=== PATIENT | female | born 2000 | race Caucasian/White ===

== ENCOUNTER 2021-03-31 18:02 | Emergency (ER) | payer MEDICAID, SELFPAY ==
--- NOTE | ~2021-03-31 | XR_ITS ---
EXAMINATION: CR RIGHT ANKLE. CR RIGHT FOOT. CLINICAL INFORMATION: Pain and swelling. COMPARISON: None TECHNIQUE: 3 views of the right foot and ankle. FINDINGS: Right foot and ankle: Lateral malleolar soft tissue swelling is seen. No acute fracture or dislocation is seen. The ankle mortise is symmetric and intact. No ankle joint effusion is seen. Bony structures in the foot within normal limits. No radiopaque foreign body. XR/XR ankle RT min 3V IMPRESSION: No acute fracture of the right ankle or right foot.
--- NOTE | ~2021-03-31 | XR_ITS ---
EXAMINATION: CR RIGHT ANKLE. CR RIGHT FOOT. CLINICAL INFORMATION: Pain and swelling. COMPARISON: None TECHNIQUE: 3 views of the right foot and ankle. FINDINGS: Right foot and ankle: Lateral malleolar soft tissue swelling is seen. No acute fracture or dislocation is seen. The ankle mortise is symmetric and intact. No ankle joint effusion is seen. Bony structures in the foot within normal limits. No radiopaque foreign body. XR/XR foot RT 2V IMPRESSION: No acute fracture of the right ankle or right foot.
[2021-03-31 18:24] VITALS: BP 110/76; PULSE 76; RESP 16; TEMP 36.3; O2SAT 98; BMI 28.3
--- NOTE | 2021-03-31 20:42 | ED.LOWEXIN ---
HPI - Extremity Injury (Lower) General Chief Complaint: Extremity Injury, Lower Stated Complaint: r ankle injury Source: patient and EMS Mode of arrival: EMS Limitations: no limitations History of Present Illness HPI Narrative: 20-year-old female presents via EMS for right ankle pain. Stated that she was walking in a store, tripped and reports 10 right ankle pain and swelling. He has not hit her head, we consciousness, and denies any other symptoms at this time. complaint: ankle injury Onset (ago): hour(s) (Within the hour of arrival) Type of Injury: inversion Place: other (Store) Severity: severe Severity scale (1-10): 10 Relieving factors: nothing Exacerbating factors: weight bearing, movement and palpation Context: walking Associated symptoms: swelling and unable to bear weight Other symptoms: none Treatments prior to arrival: cold therapy Related Data Previous Rx's Medication Instructions Recorded ibuprofen 600 mg tablet 600 mg PO Q6H PRN #60 tab 03/31/21 Allergies Allergy/AdvReac Type Severity Reaction Status Date / Time bee pollen [bee stings] Allergy Angioedema Verified 03/31/21 18:28 peanut Allergy Angioedema Verified 03/31/21 18:28 Review of Systems Review of Systems: Constitutional: No Fever, No Chills ENT/Mouth: No Ear Pain, No Hoarseness, No sore throat Eyes: No Eye Pain, No Swelling, No Redness, No Foreign Body Cardiovascular: No Chest Pain, No SOB Respiratory: No Cough, No Dyspnea Gastrointestinal: No Nausea, No Vomiting, No Diarrhea, No abdominal Pain Genitourinary: No Dysuria, No Hematuria Musculoskeletal: positive ankle pain, No Myalgias, No Joint Swelling Skin: No Skin lacerations, No rash Neuro: No Weakness, No Numbness, No Paresthesias, No Loss of Consciousness, No Dizziness, No Headache Psych: No Anxiety/Panic, No Depression Heme/Lymph: no easy bruising, no Lymphadenopathy Endocrine: No Polyuria, No Polydipsia Yes all other systems are reviewed and are negative [facility] Past Medical History Attestation statement: The following information was validated with the patient. Source: old records reviewed Social History Social History Advance Directives: No Physical Exam Vital Signs: Vital Signs: Last Vital Signs Temp 97.3 F 03/31/21 18:24 Pulse 76 03/31/21 18:24 Resp 16 03/31/21 18:24 BP 110/76 03/31/21 18:24 Pulse Ox 98 03/31/21 18:24 Body Mass Index 28.3 Appearance: Alert. Oriented X3. No acute distress. Eyes: Pupils equal, round and reactive to light. ENT: Pharynx normal. Neck: Normal inspection. Neck supple. CVS: Normal heart rate and rhythm. Pulses normal. Respiratory: No respiratory distress. Breath sounds normal. Abdomen: Soft and nontender. Skin: Skin warm and dry. Normal skin color. Normal skin turgor. Extremities: Minimal swelling noted to the right lateral malleolar process, tenderness noted to bilateral malleolar processes, decreased flexion extension internal external rotation for range of motion. Brisk capillary refill and equal pulses. Neuro: No motor deficit. No sensory deficit. Cranial nerves 2-12 intact. Course Course Course Narrative: 20-year-old female presents with right ankle pain and swelling after a twisting injury while walking in a store. Patient states tab 10/10 pain with minimal palpation and movement. I do not appreciate significant swelling or bruising. Will order x-rays. X-rays are negative for acute findings requiring emergent intervention. While there is no fracture or dislocation, no significant swelling or bruising, I will place patient in Sarthak wrap, air cast and provide crutches as patient states that she is unable to ambulate well. Will give prescription for Motrin. Patient verbalizes understanding of and agrees to plan of care discharge home MDM - Extremity Injury (Lower) Differential Diagnosis Differential diagnosis: Likely ankle sprain and strain and ankle fracture Medical Records Attestation: I reviewed the patient's medical records. Imaging Data Ankle and foot x-ray: Attestation: I personally reviewed and interpreted this imaging study as follows: Radiologist's impression: EXAMINATION: CR RIGHT ANKLE. CR RIGHT FOOT. CLINICAL INFORMATION: Pain and swelling.? COMPARISON: None? TECHNIQUE: 3 views of the right foot and ankle. FINDINGS: Right foot and ankle: Lateral malleolar soft tissue swelling is seen. No acute fracture or dislocation is seen. The ankle mortise is symmetric and intact. No ankle joint effusion is seen. Bony structures in the foot within normal limits. No radiopaque foreign body.? XR/XR foot RT 2V IMPRESSION: No acute fracture of the right ankle or right foot.? Discharge Plan Discharge Clinical Impression: Ankle sprain and strain Patient Disposition: Home, Self-Care Instructions: Ankle Sprain (ED), Ankle Stirrup Splint (ED) Additional Instructions: You were evaluated for injury sustained while walking. X-rays are negative for fracture or dislocation. Her symptoms are consistent with an ankle sprain. Please use Sarthak wrap and stirrup splint as needed for comfort. Rest, ice and elevate. Use Tylenol and Motrin as needed for pain management. Thank you for choosing this emergency department for evaluation. Please follow-up with primary care physician as needed. Return to the emergency department for any new, concerning, or worsening symptoms. Prescriptions: New ibuprofen 600 mg tablet 600 mg PO Q6H PRN (Reason: pain) Qty: 60 RF: 0 Referrals: Billy Weiss PA-C [Physician [facility]] - 2 days (right ankle sprain) Interventions: ED Discharge Assessment Last Done: 03/31/21 23:33 Discharge Date/Time: 03/31/21 23:34
[2021-03-31] MEDS: Ibuprofen 600 MG TABLET PO (22:05)
== END 2021-03-31 23:34 | disposition home or self-care (01) ==
PROVIDERS: Emergency Provider Emergency Medicine
DX: S93.401A Sprain of unspecified ligament of right ankle, initial encounter (principal); S96.911A Strain of unspecified muscle and tendon at ankle and foot level, right foot, initial encounter; X50.1XXA Overexertion from prolonged static or awkward postures, initial encounter; Y93.89 Activity, other specified; Y92.512 Supermarket, store or market as the place of occurrence of the external cause; Y99.9 Unspecified external cause status
CPT/HCPCS: 73610; 73620; 99283

== ENCOUNTER 2022-03-07 13:24 | Outpatient (REF) | payer MEDICAID, SELFPAY ==
[2022-03-07 16:03] LABS: HCG Quantitative 87366 mIU/mL
== END 2022-03-07 13:25 | disposition home or self-care (01) ==
LOC: HO.LAB 13:24
PROVIDERS: Visit Provider Advanced Practice Midwife
DX: Z32.01 Encounter for pregnancy test, result positive (principal)
CPT/HCPCS: 36415; 81025; 84702; 99202

== ENCOUNTER 2022-03-15 13:33 | Outpatient (REF) | payer MEDICAID, SELFPAY ==
--- NOTE | ~2022-03-15 | US_ITS ---
EXAMINATION: US OBSTETRICAL CLINICAL INFORMATION: History of recent miscarriage July 2021 COMPARISON: None. LMP: 01/04/2022. Gestational age by maternal dates is 10 weeks 0 days. Estimated date of delivery by maternal dates is 3323. TECHNIQUE: Routine grayscale imaging of pelvis is performed. FINDINGS: There is a single intrauterine gestational sac with visible yolk sac, embryo/fetus, and cardiac activity. There is no significant subchorionic hemorrhage or hematoma. HR: 172 beats per minute. CRL (crown rump length): 1.79 cm (8 weeks 2 days +/- 4 days). JENA (estimated date of delivery): 10/23/2022 +/- 4 days. MATERNAL ADNEXA: The right maternal ovary measures 2.7 x 1.8 x 1.9 cm. No focal lesion seen. The left maternal ovary measures 3.3 x 2.7 x 2.5 cm. There is anechoic corpus luteal cyst measuring 1.9 x 1.8 x 1.6 cm There is no significant maternal adnexal mass. No maternal pelvic ascites. US/US OB <= 14 weeks fetus IMPRESSION: 1. Single intrauterine gestation with ultrasound gestational age of 8 weeks and 2 days +/- 4 days. 2. Estimated date of delivery is 10/23/2022 +/- 4 days. 3. No maternal adnexal mass or pelvic ascites.
== END 2022-03-15 13:34 | disposition home or self-care (01) ==
LOC: HO.US 13:33
PROVIDERS: Visit Provider Advanced Practice Midwife
DX: Z34.91 Encounter for supervision of normal pregnancy, unspecified, first trimester (principal); Z3A.10 10 weeks gestation of pregnancy
CPT/HCPCS: 76801

== ENCOUNTER → 2022-05-06 13:33 | Outpatient (BNVA) | payer MEDICAID, SELFPAY | PROVIDERS: Visit Provider Advanced Practice Midwife | DX: O09.292 Supervision of pregnancy with other poor reproductive or obstetric history, second trimester (principal); Z3A.15 15 weeks gestation of pregnancy | CPT/HCPCS: 99212 ==

== ENCOUNTER 2022-05-08 12:23 | Outpatient (REF) | payer MEDICAID, SELFPAY ==
[2022-05-08 13:15] LABS: Hematocrit 35.6 % (37.0-47.0); Hemoglobin 12.5 g/dl (12.0-16.0); Mean Corpuscular HGB Conc 35.1 g/dl (31.0-35.0); Mean Corpuscular Hemoglobin 31.3 pg (27.0-33.0); Mean Platelet Volume 10.5 fL (9.4-12.3); Platelet Count 185 X10*3/uL (160-400); Red Cell Distribution Width 13.7 % (11.0-16.0); White Blood Count 7.8 X10*3/uL (4.8-10.8)
[2022-05-08 13:49] LABS: Amphetamine Screen Urine Not Detected (Not Detect); Barbiturates, Urine Not Detected (Not Detect); Benzodiazepines Screen Urine Not Detected (Not Detect); Cannabinoid Screen Urine Not Detected (Not Detect); Cocaine Screen Urine Not Detected (Not Detect); Fentanyl, urine Not Detected (Not Detect); Opiate Screen Urine Not Detected (Not Detect); Phencyclidine Screen Urine Not Detected (Not Detect)
[2022-05-08 14:04] LABS: Syphilis Screen Nonreactive (Nonreactive)
[2022-05-09 06:06] LABS: CT PCR NOT DETECTED (Not Detect.); NG PCR NOT DETECTED (Not Detect.)
[2022-05-09 07:18] LABS: HBsAGNum1 0.39 S/CO (0.00-0.99); HIV AB/AG Nonreactive (Nonreactive); HIV Num 1 0.09 S/CO (0.00-0.99); Hepatitis B Surface Antigen Negative (Negative); ~HepC Num1 0.06 S/CO (0.00-0.79); ~Hepatitis C Antibody Nonreactive (Nonreactive)
[2022-05-09 13:10] LABS: BV Int Neg Control Negative (Negative); BV Int Pos Control Positive (Positive)
[2022-05-10 08:47] LABS: Rubella IgG Antibody 0.92 Index; Varicella IgG Antibody <135.00 index
== END 2022-05-08 12:24 | disposition home or self-care (01) ==
LOC: HO.LAB 12:23
PROVIDERS: Visit Provider Advanced Practice Midwife
DX: Z34.92 Encounter for supervision of normal pregnancy, unspecified, second trimester (principal); Z3A.16 16 weeks gestation of pregnancy
CPT/HCPCS: 80307; 81003; 85027; 86762; 86780; 86787; 86803; 86850; 86900; 87086; 87340; 87389; 87480; 87491; 87510; 87591; 87660; 88142; 99212

== ENCOUNTER 2022-05-08 13:45 | Outpatient (REF) | payer MEDICAID, SELFPAY | END 2022-05-08 13:46 | disposition home or self-care (01) | LOC: HO.LNP 13:45 | PROVIDERS: Visit Provider Advanced Practice Midwife | DX: Z34.92 Encounter for supervision of normal pregnancy, unspecified, second trimester (principal) | CPT/HCPCS: 88142 ==

== ENCOUNTER → 2022-06-11 08:53 | Outpatient (BNVA) | payer MEDICAID, SELFPAY | PROVIDERS: Visit Provider Obstetrics & Gynecology | DX: Z34.82 Encounter for supervision of other normal pregnancy, second trimester (principal); Z3A.20 20 weeks gestation of pregnancy | CPT/HCPCS: 81003; 99212 ==

== ENCOUNTER → 2022-07-15 10:10 | Outpatient (BNVA) | payer MEDICAID, SELFPAY | PROVIDERS: Visit Provider Advanced Practice Midwife | DX: Z34.82 Encounter for supervision of other normal pregnancy, second trimester (principal); Z23 Encounter for immunization; Z3A.25 25 weeks gestation of pregnancy | CPT/HCPCS: 90471; 90686; 99212 ==

== ENCOUNTER 2022-08-06 08:52 | Outpatient (REF) | payer MEDICAID, SELFPAY ==
[2022-08-06 11:41] LABS: Hematocrit 31.5 % (37.0-47.0); Hemoglobin 10.6 g/dl (12.0-16.0); Mean Corpuscular HGB Conc 33.7 g/dl (31.0-35.0); Mean Corpuscular Hemoglobin 29.4 pg (27.0-33.0); Mean Corpuscular Volume 87.5 fL (80.0-98.0); Mean Platelet Volume 10.6 fL (9.4-12.3); Platelet Count 187 X10*3/uL (160-400); Red Cell Distribution Width 12.2 % (11.0-16.0); White Blood Count 8.1 X10*3/uL (4.8-10.8)
[2022-08-06 12:06] LABS: Glucose 1 Hour PP 50gm Dose 53 mg/dL (60-140)
[2022-08-07 06:38] LABS: Syphilis Screen Nonreactive (Nonreactive)
== END 2022-08-06 08:53 | disposition home or self-care (01) ==
LOC: HO.LAB 08:52
PROVIDERS: Visit Provider Advanced Practice Midwife
DX: Z34.93 Encounter for supervision of normal pregnancy, unspecified, third trimester (principal); Z3A.28 28 weeks gestation of pregnancy
CPT/HCPCS: 36415; 82950; 85027; 86780; 99212

== ENCOUNTER → 2022-08-21 09:56 | Outpatient (BNVA) | payer MEDICAID, SELFPAY | PROVIDERS: Visit Provider Advanced Practice Midwife | DX: O36.8330 Maternal care for abnormalities of the fetal heart rate or rhythm, third trimester, not applicable or unspecified (principal); Z3A.31 31 weeks gestation of pregnancy | CPT/HCPCS: 99212 ==

== ENCOUNTER 2022-09-04 13:40 | Outpatient (REF) | payer MEDICAID, SELFPAY | END 2022-09-04 13:41 | disposition home or self-care (01) | LOC: HO.LNP 13:40 | PROVIDERS: Visit Provider Advanced Practice Midwife | DX: O26.893 Other specified pregnancy related conditions, third trimester (principal); R31.9 Hematuria, unspecified; Z3A.33 33 weeks gestation of pregnancy | CPT/HCPCS: 81003; 87086; 99212 ==

== ENCOUNTER 2022-09-23 09:52 | Outpatient (REF) | payer MEDICAID, SELFPAY ==
[2022-09-23 19:07] LABS: CT PCR NOT DETECTED (Not Detect.); NG PCR NOT DETECTED (Not Detect.)
[2022-09-24 13:23] LABS: Allergic to Penicillin? No
== END 2022-09-23 09:53 | disposition home or self-care (01) ==
LOC: HO.LNP 09:52
PROVIDERS: Visit Provider Advanced Practice Midwife
DX: Z34.93 Encounter for supervision of normal pregnancy, unspecified, third trimester (principal); Z28.39 Other underimmunization status; Z79.899 Other long term (current) drug therapy
CPT/HCPCS: 0353U; 81003; 87081; 87150; 99212

== ENCOUNTER → 2022-10-02 13:00 | Outpatient (BNVA) | payer MEDICAID, SELFPAY | PROVIDERS: Visit Provider Advanced Practice Midwife | DX: O99.820 Streptococcus B carrier state complicating pregnancy (principal); O09.293 Supervision of pregnancy with other poor reproductive or obstetric history, third trimester; Z3A.37 37 weeks gestation of pregnancy | CPT/HCPCS: 99212 ==

== ENCOUNTER 2022-10-09 13:10 | Outpatient (REF) | payer MEDICAID, SELFPAY ==
[2022-10-09 18:14] LABS: Creatinine Urine 163.51 mg/dL; Protein/Creatinine Ratio, Ur 0.14 (<0.2); Total Protein Urine Random 23 mg/dL (<12)
== END 2022-10-09 13:11 | disposition home or self-care (01) ==
LOC: HO.LAB 13:10
PROVIDERS: Visit Provider Advanced Practice Midwife
DX: O16.3 Unspecified maternal hypertension, third trimester (principal); Z79.899 Other long term (current) drug therapy; Z3A.38 38 weeks gestation of pregnancy
CPT/HCPCS: 81003; 84156; 99212

== ENCOUNTER 2023-05-29 14:07 | Outpatient (AMB) | payer MEDICAID, SELFPAY ==
[2023-05-29 14:10] VITALS: BP 114/74; BMI 23.6
--- NOTE | 2023-05-29 14:10 | MHC.OFFVIS ---
Intake Vital Signs 05/29/23 14:10 Height 5 ft Weight 121 lb BMI 23.6 BP 114/74 Intake Visit Reasons: Vaginal Discharge Intake Note: The patient agreed to use of a medical sales consultant during this encounter. Scribed for CHICO Wang by Azeb Walker medical sales consultant, on 05/29/2023 at 2:23 pm EST. Wire Stitcher Machine: Wire Stitcher Machine Present (Yasemin) Allergies bee pollen [bee stings] Allergy (Verified 05/29/23 14:10) Angioedema peanut Allergy (Verified 05/29/23 14:10) Angioedema Is last menstrual period known: Yes Last menstrual period: 05/02/23 HPI HPI Comments History of Present Illness Details She is here with complaints of vaginal discharge. She denies vaginal odor; admits slight pelvic discomfort. Currently sexually active, does not take BC. Is interested in restarting Depo. Reports she has not had her PPV. Delivered 10/2023. She denies any contraindications to control such as: migraines with aura, history of DVT or pulmonary emboli, high blood pressure, liver disease, thrombolic disorders, Lupus, +MOOKIE, or smoking. [facility] Medical History Influenza vaccine needed Social History Household Members: Family and Children Both parents involved: Yes Caregiver staying overnight: No Housing: Apartment Are you a primary date night caregiver to a significant other at home: No Do you presently have visiting nurse or other home services: No 75 years or older and lives alone: No Alcohol intake: former Patient Tobacco Use Status: Never used Tobacco Agree to transfusion: Yes service: No Current occupational status: unemployed Cognitive needs: No Hearing needs: No Vision needs: No Female Reproductive History Menstrual Age of Menarche: 13 Duration of menses: 3-5 days Date of last menstrual period: 05/02/23 control method: none Physical Exam Vital Signs: Last Vital Signs BP 114/74 05/29/23 14:10 BMI result Body Mass Index 23.6 Const General: cooperative, healthy appearing, comfortable, no acute distress, well developed, alert and awake Other: General: Yes bladder normal to palpation External Female Exam: normal external appearance and normal appearance of the urethra Speculum Exam - Vagina: normal appearance of the vagina, normal palpation and abnormal vaginal discharge frothy (thin, milky) Speculum Exam - Cervix: normal appearance of the cervix and normal palpation Bimanual exam- vagina & uterus: normal bimanual exam, normal palpation, bladder normal to palpation and normal palpation Bimanual Exam- Adnexa, other: normal adnexae and no masses Assessment & Plan Assessment & Plan (1) Vaginal discharge: Code(s): N89.8 - Other specified noninflammatory disorders of vagina Plan: Discussed: BV testing and GC/CT panel done today. Await results and treat accordingly. All of her questions and concerns were addressed to the best of my ability and shared decision making. She is agreeable to plan of care. (2) Pelvic cramping: Code(s): R10.2 - Pelvic and perineal pain (3) control counseling: Code(s): Z30. - Encounter for other general counseling and advice on contraception Plan: She opts for Depo Provera. Reviewed use, side effects and warnings. Instructed to monitor periods and contact the office with any concerns. Instructed patient no UPI for 2 weeks prior to first injection. Start Depo in the first five days of your next menses (due next week). Encouraged condoms always to prevent STD's. Rx for Depo sent to pharmacy. Instructed to pepper picker Rx and bring to office with her. Return for RN for initial Depo injection and every 12 weeks thereafter. Pt is going to call for Depo appointment. She was instructed to go to ER if she develops loss of vision, severe headache that does not resolve, chest pain, difficulty breathing, abdominal pain, or pain or tenderness in extremity or new breast lumps. Call the office with any concerns. Coding Level of Care Code Est Pt Level 3 (57174) Diagnoses Vaginal discharge N89.8 Pelvic cramping R10.2 control counseling Z30.
== END 2023-05-29 14:39 | disposition home or self-care (01) ==
PROVIDERS: Visit Provider Advanced Practice Midwife
DX: N89.8 Other specified noninflammatory disorders of vagina (principal); R10.2 Pelvic and perineal pain; Z30.09 Encounter for other general counseling and advice on contraception
CPT/HCPCS: 99213

== ENCOUNTER 2023-05-29 14:07 | Outpatient (REF) | payer MEDICAID, SELFPAY | END 2023-05-29 14:08 | disposition home or self-care (01) | LOC: HO.LAB 14:07 | PROVIDERS: Visit Provider Advanced Practice Midwife | DX: N89.8 Other specified noninflammatory disorders of vagina (principal); R10.2 Pelvic and perineal pain; Z30.09 Encounter for other general counseling and advice on contraception | CPT/HCPCS: 0353U; 87480; 87510; 87660; 99212 ==

== ENCOUNTER 2023-05-29 15:09 | Outpatient (REF) | payer MEDICAID, SELFPAY ==
[2023-05-29 17:33] LABS: CT PCR NOT DETECTED (Not Detect.); NG PCR NOT DETECTED (Not Detect.)
[2023-05-30 11:15] LABS: BV Int Neg Control Negative (Negative); BV Int Pos Control Positive (Positive)
== END 2023-05-29 15:10 | disposition home or self-care (01) ==
LOC: HO.LNP 15:09
PROVIDERS: Visit Provider Advanced Practice Midwife
DX: N89.8 Other specified noninflammatory disorders of vagina (principal); R10.2 Pelvic and perineal pain; Z11.3 Encounter for screening for infections with a predominantly sexual mode of transmission
CPT/HCPCS: 0353U; 87480; 87510; 87660

== ENCOUNTER 2023-07-01 12:14 | Outpatient (REF) | payer MEDICAID, SELFPAY ==
[2023-07-03 16:24] LABS: C. trachomatis RNA TMA NOT DETECTED (NOT DETECTED); Candida glabrata RNA NOT DETECTED (NOT DETECTED); Candida species RNA DETECTED (NOT DETECTED); N. gonorrhoeae RNA TMA NOT DETECTED (NOT DETECTED); Trichomonas vaginalis RNA NOT DETECTED (NOT DETECTED)
== END 2023-07-01 12:15 | disposition home or self-care (01) ==
LOC: HO.HHCLNP 12:14
PROVIDERS: Visit Provider Emergency Medicine
DX: N89.8 Other specified noninflammatory disorders of vagina (principal)
CPT/HCPCS: 36415; 81513; 87255; 87481; 87491; 87591; 87661

== ENCOUNTER 2023-07-01 12:23 | Outpatient (REF) | payer MEDICAID, SELFPAY | END 2023-07-01 12:24 | disposition home or self-care (01) | LOC: HO.HHCLNP 12:23 | PROVIDERS: Visit Provider Emergency Medicine | DX: N76.0 Acute vaginitis (principal) | CPT/HCPCS: 36415; 87255 ==

== ENCOUNTER 2023-12-05 13:06 | Outpatient (REF) | payer MEDICAID, SELFPAY ==
[2023-12-06 06:52] LABS: CT PCR NOT DETECTED (Not Detect.); NG PCR NOT DETECTED (Not Detect.)
[2023-12-07 11:43] LABS: BV Int Neg Control Negative (Negative); BV Int Pos Control Positive (Positive)
== END 2023-12-05 13:07 | disposition home or self-care (01) ==
LOC: HO.LNP 13:06
PROVIDERS: Visit Provider Advanced Practice Midwife
DX: Z11.3 Encounter for screening for infections with a predominantly sexual mode of transmission (principal); N89.8 Other specified noninflammatory disorders of vagina
CPT/HCPCS: 0353U; 87480; 87510; 87660; 99212

== ENCOUNTER 2023-12-05 13:06 | Outpatient (AMB) | payer MEDICAID, SELFPAY ==
[2023-12-05 13:08] VITALS: BP 100/62; BMI 23.2
--- NOTE | 2023-12-05 13:08 | MHC.OFFVIS ---
Vital Signs 12/05/23 13:08 Height 5 ft Weight 119 lb BMI 23.2 BP 100/62 Intake Visit Reasons: ? infection Intake Note: having a lot of white discharge and some odor Cheese Cutter Required: No Information Interpreted: non-clinical & clinical Metal Spray Operator: Metal Spray Operator Present (Frederic) Allergies bee pollen [bee stings] Allergy (Verified 12/05/23 13:09) Angioedema peanut Allergy (Verified 12/05/23 13:09) Angioedema Is last menstrual period known: Yes Last menstrual period: 11/17/23 Post menopausal: No HPI HPI ? infection: Details: Patient is here because she says she has had problematic discharge since Friday or Friday she says it has not causing itching but it there has an odor to it and she wants to get checked . Patient responded with me only 1 or 2 word answers to questions today. I inquired as to what had happened with her plan for Depo-Provera and she said she was moving, when I asked this is why she did not make it into the appointment she said yes. When asked her if she would be interested in getting the Depo she said yes. Her last menstrual period was November 16 I confirmed that she probably would be starting her next menses in about 10 days or so and she confirmed yes. I recommended that she go to her pharmacy and slate picker her prescription for the Depo which she never picked up and then when she gets her. To call the office and schedule a visit to come in soon as possible with the nurse to get her Depo shot. I recommend going to slate picker the prescription very soon because in case it needs to be reordered or something or re sent from [facility] is prescription then it that can happen and not delay her getting the shot. I reviewed that after she gets the shot will be every 12 weeks and she said yes to that. I asked her if she was interested in getting other STI testing today via blood tests and she said yes and she said she is on the portal and so I told her that would be where she could find the results. Everything appeared normal on her exam today we will await testing results. [facility] Medical History Influenza vaccine needed Social History Household Members: Family and Children Both parents involved: Yes Caregiver staying overnight: No Housing: Apartment Are you a primary floor care specialist to a significant other at home: No Do you presently have visiting nurse or other home services: No 75 years or older and lives alone: No Alcohol intake: former Patient Tobacco Use Status: Never used Tobacco Agree to transfusion: Yes service: No Current occupational status: unemployed Cognitive needs: No Hearing needs: No Vision needs: No Female Reproductive History Menstrual Age of Menarche: 13 Duration of menses: 6-7 days Date of last menstrual period: 11/17/23 control method: none Total pregnancies: 4 Full term: 3 Number of Living Children: 3 Ab spontaneous: 1 Date of last pap smear: 05/09/22 (negative) History of abnormal pap smear: No Physical Exam Vital Signs: Last Vital Signs BP 100/62 12/05/23 13:08 BMI result Body Mass Index 23.2 Other: Vagina pink and moist cervix multiparous pink moist there is a moderate amount of very clear/white discharge that possibly could be consistent with midcycle mucus. External Female Exam: normal external appearance and normal appearance of the urethra Speculum Exam - Vagina: normal appearance of the vagina and normal vaginal discharge Speculum Exam - Cervix: normal appearance of the cervix and Cervical os closed Assessment & Plan Assessment & Plan (1) Encounter for screening examination for sexually transmitted disease: Code(s): Z11.3 - Encounter for screening for infections with a predominantly sexual mode of transmission Category: Medical (2) Problematic vaginal discharge: Code(s): N89.8 - Other specified noninflammatory disorders of vagina Category: Medical Plan Patient is here because she says she has had problematic discharge since Friday or Friday she says it has not causing itching but it there has an odor to it and she wants to get checked . Patient responded with me only 1 or 2 word answers to questions today. I inquired as to what had happened with her plan for Depo-Provera and she said she was moving, when I asked this is why she did not make it into the appointment she said yes. When asked her if she would be interested in getting the Depo she said yes. Her last menstrual period was November 16 I confirmed that she probably would be starting her next menses in about 10 days or so and she confirmed yes. I recommended that she go to her pharmacy and slate picker her prescription for the Depo which she never picked up and then when she gets her. To call the office and schedule a visit to come in soon as possible with the nurse to get her Depo shot. I recommend going to slate picker the prescription very soon because in case it needs to be reordered or something or re sent from [facility] is prescription then it that can happen and not delay her getting the shot. I reviewed that after she gets the shot will be every 12 weeks and she said yes to that. I asked her if she was interested in getting other STI testing today via blood tests and she said yes and she said she is on the portal and so I told her that would be where she could find the results. Everything appeared normal on her exam today we will await testing results. Orders: Orders Hepatitis C Antibody Today N89.8 - Other specified noninflammatory disorders of vagina, Z11.3 - Encounter for screening for infections with a predominantly sexual mode of transmission Herpes Virus Culture Today N89.8 - Other specified noninflammatory disorders of vagina, Z11.3 - Encounter for screening for infections with a predominantly sexual mode of transmission Syphilis Screen Today N89.8 - Other specified noninflammatory disorders of vagina, Z11.3 - Encounter for screening for infections with a predominantly sexual mode of transmission Hepatitis B Surface Antigen Today N89.8 - Other specified noninflammatory disorders of vagina, Z11.3 - Encounter for screening for infections with a predominantly sexual mode of transmission Coding Level of Care Code Est Pt Level 3 (01333) Diagnoses Encounter for screening examination for sexually transmitted disease Z11.3 Problematic vaginal discharge N89.8
== END 2023-12-05 13:38 | disposition home or self-care (01) ==
PROVIDERS: Visit Provider Advanced Practice Midwife
DX: Z11.3 Encounter for screening for infections with a predominantly sexual mode of transmission (principal); N89.8 Other specified noninflammatory disorders of vagina
CPT/HCPCS: 99213

== ENCOUNTER 2024-09-29 10:23 | Outpatient (REF) | payer MEDICAID, SELFPAY ==
--- OUTSIDE RECORDS SUMMARY | 2024-09-29 11:33 | XMS_ITS | Clinical Summary ---
Author Organization [employer] Address [address] [place] [address] [address] [place] [address] Care Team Providers Care Manager Lan Name Role Phone Unavailable Primary Care Provider [...] Type Department Care Team Description 07/23/[address] [facility] [address] [place] [address] Trey Burns CNP Nurse Triage from Last [...] detection of this assay. ?? [employer] Designer HIV Ag/Ab Combo assay result and supplemental assay results should be interpreted in conjunction with the patient's clinical presentation, history and other laboratory results. ??If the results are inconsistent with clinical evidence, additional testing is suggested to confirm the result. Hepatitis B Surface Antigen Negative Negative CONVERTED LEGACY LABS 05/08/2022 12:3 6 PM EDT Arabella [place] HISTORICAL/NON ORDERABLE LABS Fi nal Result CONVERTED LEGACY LABS from Last 3 Months or Most Recently Relevant to Health Maintenance Insurance [facility] C3
[2024-09-29 17:14] LABS: Bacterial Vaginosis PCR NEGATIVE (Negative); Candida Group PCR DETECTED (Not Detect); Candida glab krusei PCR NOT DETECTED (Not Detect); Trichomonas vaginalis PCR NOT DETECTED (Not Detect)
[2024-09-29 17:47] LABS: CT PCR NOT DETECTED (Not Detect.); NG PCR NOT DETECTED (Not Detect.)
[2024-09-30 08:02] LABS: Syphilis Screen Nonreactive (Nonreactive)
[2024-09-30 08:17] LABS: HBc Num1 0.08 S/CO (0.00-0.79); HIV AB/AG Nonreactive (Nonreactive); HIV Num 1 0.09 S/CO (0.00-0.99); Hepatitis B Core Antibody Nonreactive (Nonreactive); ~HepC Num1 0.11 S/CO (0.00-0.79); ~Hepatitis C Antibody Nonreactive (Nonreactive)
== END 2024-09-29 10:24 | disposition home or self-care (01) ==
LOC: HO.LNP 10:23
PROVIDERS: Visit Provider Advanced Practice Midwife
DX: L29.2 Pruritus vulvae (principal); Z20.2 Contact with and (suspected) exposure to infections with a predominantly sexual mode of transmission; N89.8 Other specified noninflammatory disorders of vagina
CPT/HCPCS: 81515; 86704; 86780; 86803; 87389; 87491; 87591; 99212

== ENCOUNTER 2024-09-29 10:23 | Outpatient (AMB) | payer MEDICAID, SELFPAY ==
--- NOTE | 2024-09-29 10:28 | MHC.OFFVIS ---
Intake Visit Reasons: Discharge and rash Intake Note: Patient noticed after using a new soap itching in vaginal area and discharge. Shoemaker Apprentice: Shoemaker Apprentice Present (Kim) Accompanied by: Self / Same As Patient Allergies bee pollen [bee stings] Allergy (Verified 09/29/24 10:32) Angioedema peanut Allergy (Verified 09/29/24 10:32) Angioedema HPI Comments Details: Patient is here today with concerns that she started a new body soap and experience some vulvar itching and swelling 2 days ago. She is also interested in having a all the STD testing complete including blood work. She has regular menses. She denies any pelvic pain or urinary symptoms. [facility] Medical History Influenza vaccine needed Social History Household Members: Family and Children Both parents involved: Yes Caregiver staying overnight: No Housing: Apartment Are you a primary transitions rn care coordinator to a significant other at home: No Do you presently have visiting nurse or other home services: No 75 years or older and lives alone: No Alcohol intake: former Patient Tobacco Use Status: Never used Tobacco Agree to transfusion: Yes service: No Current occupational status: unemployed Cognitive needs: No Hearing needs: No Vision needs: No Female Reproductive History Menstrual Age of Menarche: 13 Review of Systems Const All systems reviewed & are unremarkable except as noted in HPI and below Physical Exam Const General: cooperative, healthy appearing and no acute distress Orientation/consciousness: patient oriented x3 GI Inspection: Yes normal to inspection Palpation (GI): Soft to palpation and Other GI palpation findings present (Nontender) Rectal Exam - Female: visual inspection normal Other: External: Labial erythema, no lesions General: Yes bladder normal to palpation External Female Exam: normal appearance of the urethra Speculum Exam - Vagina: normal appearance of the vagina, normal palpation and normal vaginal discharge (Abundant white ) Speculum Exam - Cervix: normal appearance of the cervix and normal palpation Bimanual exam- vagina & uterus: normal bimanual exam, normal palpation, uterine size normal, bladder normal to palpation, normal palpation, uterine shape normal and non-tender Bimanual Exam- Adnexa, other: normal adnexae Neuro General: patient oriented x3 Assessment & Plan Assessment & Plan (1) Vulvar itching: Code(s): L29.2 - Pruritus vulvae Plan: Instructions: Clean with warm water, no soaps, scented products. Use a cool cloth to the area several times a day if swollen and/or uncomfortable. Wear loose, cotton underclothes, avoid tight outer clothing. Air when possible. No coitus until well healed. Complete all medications as prescribed. Await final pending results for any changes in the plan of care. Call the office if there is no improvement in 24-48hrs., or if worsening symptoms. Rx for topical symptoms and discomfort sent to pharmacy. Use as directed. (2) Possible exposure to STD: Code(s): Z20.2 - Contact with and (suspected) exposure to infections with a predominantly sexual mode of transmission Plan: GC chlamydia, and BV panel obtained. Patient to go the lab following the visit to do bled work, follow up pending results. Plan Advised to schedule her yearly annual exam due in November, and encouraged to set up the patient portal. The patient expressed understanding and agreement with the plan of care. All of her questions and concerns were addressed to the best of my ability. This note is constructed using voice recognition software. While every effort has been made to ensure accuracy, certified coding specialist errors may have been included. Orders: Orders HIV Ab/Ag Today Z20.2 - Contact with and (suspected) exposure to infections with a predominantly sexual mode of transmission Hepatitis C Antibody Reflex Today Z20.2 - Contact with and (suspected) exposure to infections with a predominantly sexual mode of transmission Syphilis Screen Today Z20.2 - Contact with and (suspected) exposure to infections with a predominantly sexual mode of transmission Hepatitis B Core Antibody Today Z20.2 - Contact with and (suspected) exposure to infections with a predominantly sexual mode of transmission Medications: New clotrimazole-betamethasone 1-0.05 % apply externally a thin coat to the area 1 appl topical BID 7 days 45 grams 0RF itching Coding Level of Care Code Est Pt Level 3 (36795) Diagnoses Vulvar itching L29.2 Possible exposure to STD Z20.2
--- OUTSIDE RECORDS SUMMARY | 2024-09-29 11:03 | XMS_ITS | Clinical Summary ---
Author Organization [facility] [employer] Address [address] [place] [address] [address] [place] [address] Care Team Providers Care Operations Label Clerk Name Role Phone Unavailable Primary Care Provider Unavailabl e Allergies Active Allergy Reactions Criticality Noted Date Comments Bee Venom Anaphylaxis High 07/01/2023 Dtap-Ipv Vaccine Unknown 07/01/2023 When child Peanut-Containing Drug Products 06/12 Medications triamcinolone (Kenalog) 0.1 % ointment Mix with Cerave ointment and apply to skin BID 80 g 1 07/01/2023 Active Active Problems No known active problems Encounters Date Type Department Care Team Description 07/23/2024 Telephone [facility] [address] [place] [address] Trey Burns CNP Nurse Triage from Last 3 Months Social History Tobacco Use Types Packs/Day Years Used Date Smoking Tobacco: Never Passive Smoke Exposure: Never Smokeless Tobacco: Never Tobacco Cessation:Counseling Given: Not Answered Comments Unknown Sex and Gender Information Value Date Recorded Sex Assigned at Female 06/10/2022 10:17 AM EDT Legal Sex Female 10:17 AM EDT Gender Identity Female 06/10/2022 10:17 AM EDT Sexual Orientation Don't know 06/10/2022 10 :17 AM EDT Last Filed Vital Signs Vital Sign Reading Time Taken Comments Blood Pressure 120/82 07/01/2023 4:42 PM EST Pulse 81 07/01/2023 4:42 PM EST Temperature 36.7 ??C (98.1 ??F) 07/01/2023 4:42 PM ES T Respiratory Rate 16 07/01/2023 4:42 PM EST Oxygen Saturation 98% 07/01/2023 4:42 PM EST Inhaled Oxygen Concentration - - Weight 55.5 kg (122 lb 6 oz) 07/01/2023 4:42 PM EST Height 152.4 cm (5') 07/01/2023 4:42 PM EST Body Mass Index 23.9 07/01/2023 4:42 PM EST Plan of Treatment Health Maintenance Due Date Last Done Comments Depression Screening 2000 SDOH Screening 2000 DTaP/Tdap/Td Vaccines (5 - Tdap) 2011 08/08/2003, 01/16/2001, 2000, Additional history exists Alcohol/Substance Use Screening 2012 Family Planning (PISQ) 2015 HPV Vaccines (1 - 3-dose series) 2015 Hepatitis A Vaccines (2 of 2 - 2-dose series) 05/07/2017 11/04/2016 Pap Smear 2021 COVID-19 Vaccine ( - season) 2024 Influenza Vaccine (#1) 2024 , 11/04/2016, 11/04/2016, Additional history exists Tobacco Screening 07/01/2024 07/01/2023 Zoster Vaccines (1 of 2) 2050 RSV Patients and Patients Aged 60 years or older (1 - 1-dose 75+ series) 2075 Hepatitis B Vaccines Completed 01/16/2001, 2000, 2000 HIB Vaccines Completed 06/08/2001, 03/2001, 2000, Additional history exists Pneumococcal Vaccine: Pediatrics (0 to 5 Years) and At-Risk Patients (6 to 49) Years) Aged Out 06/08/2001, 01/16/2001, 2000, Additional history exists No longer eligible based on patient's age to complete this topic IPV Vaccines Completed 04/24/2005, 04/11, 05/11/2001, Additional history exists Meningococcal Vaccine Completed 11/04/2016, 014 HIV Screening Completed 05/08/2022 Hepatitis C Screening Completed 05/08/2022 RSV under 20 months Aged Out No longe r eligible based on patient's age to complete this topic Rotavirus Vaccines Aged Out No longer eligible based on patient's age to complete this topic Procedures Procedure Name Priority Date/Time Associated Diagnosis Comments ZZZ HISTORICAL HEPATITIS C ANTIBODY Routine 05/08/2022 12:36 PM EDT from Last 3 Months or Most Recently Relevant to Health Maintenance Results * Hepatitis C Antibody (05/08/2022 12:36 PM EDT) Hepatitis C Antibody Nonreactive Nonreactive CONVERTED LEGACY LABS Comment: Antibodies to HCV not detected; does not exclude early acute HCV infection. HIV AB/AG Nonreactive Nonreactive [facility] Comment: HIV-1 p24 Ag and/or HIV-1/HIV-2 Ab not detected. ?? A test result that is nonreactive does not exclude the possibility of exposure to or infection with HIV-1 and/or HIV-2. Nonreactive results in this assay for individuals with prior exposure to HIV-1 and/or HIV-2 may be due to antigen and antibody levels that are below the limit of detection of this assay. ?? [employer] Front [employer]k Team Member HIV Ag/Ab Combo assay result and supplemental assay results should be interpreted in conjunction with the patient's clinical presentation, history and other laboratory results. ??If the results are inconsistent with clinical evidence, additional testing is suggested to confirm the result. Hepatitis B Surface Antigen Negative Negative CONVERTED LEGACY LABS 05/08/2022 12:3 6 PM EDT Arabella Craven HISTORICAL/NON ORDERABLE LABS Fi nal Result CONVERTED LEGACY LABS from Last 3 Months or Most Recently Relevant to Health Maintenance Insurance [facility] C3
== END 2024-09-29 10:46 | disposition home or self-care (01) ==
LOC: HO.HWS 10:23
PROVIDERS: Visit Provider Advanced Practice Midwife
DX: L29.2 Pruritus vulvae (principal); Z20.2 Contact with and (suspected) exposure to infections with a predominantly sexual mode of transmission
CPT/HCPCS: 99213

== ENCOUNTER 2024-09-29 10:50 | Outpatient (REF) | payer MEDICAID, SELFPAY | END 2024-09-29 10:51 | disposition home or self-care (01) | LOC: HO.LAB 10:50 | PROVIDERS: Visit Provider Advanced Practice Midwife | DX: Z13.89 Encounter for screening for other disorder (principal) ==

== ENCOUNTER 2024-11-05 13:15 | Outpatient (REF) | payer MEDICAID, SELFPAY ==
[2024-11-06 03:27] LABS: HIV AB/AG Nonreactive (Nonreactive); HIV Num 1 0.07 S/CO (0.00-0.99); ~HepC Num1 0.17 S/CO (0.00-0.79); ~Hepatitis C Antibody Nonreactive (Nonreactive)
[2024-11-06 11:48] LABS: C. trachomatis RNA TMA NOT DETECTED (NOT DETECTED); Candida glabrata RNA NOT DETECTED (NOT DETECTED); Candida species RNA NOT DETECTED (NOT DETECTED); N. gonorrhoeae RNA TMA NOT DETECTED (NOT DETECTED); Trichomonas vaginalis RNA NOT DETECTED (NOT DETECTED)
[2024-11-07 12:33] LABS: RPR Rapid Plasma Reagin NON-REACTIVE (NON-REACTIVE)
== END 2024-11-05 13:16 | disposition home or self-care (01) ==
LOC: HO.HHCL 13:15
PROVIDERS: Visit Provider Nurse Practitioner Family
DX: N89.8 Other specified noninflammatory disorders of vagina (principal); Z20.2 Contact with and (suspected) exposure to infections with a predominantly sexual mode of transmission
CPT/HCPCS: 36415; 81513; 86592; 86803; 87389; 87481; 87491; 87591; 87661

== ENCOUNTER 2025-03-18 16:21 | Emergency (ER) | payer MEDICAID, SELFPAY ==
--- NOTE | ~2025-03-18 | XR_ITS ---
CLINICAL HISTORY: pain 4 view right ankle Comparison: None provided Findings: No acute fractures. Ankle mortise intact. No significant loss of joint space, osteophytes, or erosions. No ankle effusion. No radiopaque foreign body. IMPRESSION: 1. No acute findings. This document has been electronically signed by: Dolly Valera MD on 03/18/2025 18:11:04
--- NOTE | ~2025-03-18 | XR_ITS ---
CLINICAL HISTORY: pain 3 view right foot Comparison: None provided Findings: No fractures or dislocations. No significant loss of joint space, osteophytes, or erosions. No ankle effusion. No radiopaque foreign body. IMPRESSION: 1. No acute findings. This document has been electronically signed by: Dolly Valera MD on 03/18/2025 18:12:28
[2025-03-18 16:33] VITALS: BP 126/90; PULSE 92; O2SAT 97
[2025-03-18 17:05] VITALS: BP 125/80; PULSE 79; RESP 18; TEMP 36.8; O2SAT 98; BMI 24.2
--- NOTE | 2025-03-18 17:15 | ED_ITS ---
HPI - General Adult General Chief complaint: Extremity Injury, Lower Stated complaint: lac on ankle , controlled bleeding Time Seen by Provider: 03/18/25 20:11 Related Data Previous Rx's ?Medication ?Instructions ?Recorded clotrimazole-betamethasone 1 1 appl topical BID itchin g 7 days 09/29/24 %-0.05 % topical cream #45 grams fluconazole 150 mg tablet 150 mg PO DAILY 1 dose #1 ta b 09/30/24 Allergies Allergy/AdvReac Type Severity Reaction Status Date / Time bee pollen (bee stings) Allergy Angioedema Verified 03/18/25 17:07 peanut Allergy Angioedema Verified 09/29/24 10:32 Tdap Allergy Hives Uncoded 03/18/25 17:14 [facility] Past Medical History Medical History Influenza vaccine needed Social History Social History Household Members: Family and Children Housing: Apartment Are you a primary client care coordinator to a significant other at home: No Do you presently have visiting nurse or other home services: No Alcohol intake: former Patient Tobacco Use Status: Never used Tobacco Agree to transfusion: Yes Advance Directives: No Advance Directives Information Provided: No service: No Current occupational status: unemployed Cognitive needs: No Hearing needs: No Vision needs: No Physical Exam ED Vital Signs: Vital Signs - 24 hr 03/18/25 17:05 Temperature 98.3 F Pulse Rate 79 Respiratory Rate 18 Blood Pressure 125/80 Pulse Oximetry 98 Oxygen Delivery Method Room Air BMI result Body Mass Index 24.2 Course Course Course Narrative: RME performed by Mireille Mae PA-C. Patient is a 24 year old assigned female at presenting to the emergency department with right ankle pain after a metal frame fell onto her ankle. Detailed physical exam and review of systems are deferred to the business management specialist. Imaging ordered. Patient placed back in the waiting room pending room availability and results. Patient left the department before completing treatment. Patient's limited physical examination performed in triage showed a non-toxic individual able to ambulate well and without assistance. Patient left the department before myself or any of the other emergency department clinicians could review and explain her imaging or examine her wound. Discharge Plan Discharge Clinical Impression: Ankle injury Patient Disposition: Left W/O Completing Treatment Prescriptions: No Action fluconazole 150 mg tablet 150 mg PO DAILY Qty: 1 0RF Rx Instructions: administer on day 1 of therapy clotrimazole-betamethasone 1-0.05 % cream 1 appl topical BID 7 Days Qty: 45 0RF Rx Instructions: apply externally a thin coat to the area Discharge Date/Time: 03/18/25 21:05
== END 2025-03-18 21:05 | disposition left against medical advice (07) ==
LOC: HO.ED 20:21
PROVIDERS: Emergency Provider Emergency Medicine
DX: S91.011A Laceration without foreign body, right ankle, initial encounter (principal); W22.8XXA Striking against or struck by other objects, initial encounter; Y93.89 Activity, other specified; Y92.9 Unspecified place or not applicable; Y99.9 Unspecified external cause status; M79.671 Pain in right foot; M25.571 Pain in right ankle and joints of right foot
CPT/HCPCS: 73610; 73630; 99281; 99283

== ENCOUNTER → 2025-03-18 16:33 | Outpatient (BNV) | payer MEDICAID, SELFPAY | PROVIDERS: Visit Provider Specialist | DX: M25.571 Pain in right ankle and joints of right foot (principal) | CPT/HCPCS: 73610; 73630 ==